=== PATIENT | male | born 1995 | race African-American/Black ===

== ENCOUNTER 2019-11-14 18:10 | Emergency (ER) | payer OTHER ==
[2019-11-14 18:14] VITALS: BP 111/53; PULSE 65; TEMP 98; BMI 20.9
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
[2019-11-14 19:10] LABS: PROTHROMBIN TIME (PATIENT) 48.1 SEC (9.7-13.0)
[2019-11-14 19:37] LABS: INR 4.02 (0.83-1.09)
== END 2019-11-14 19:55 | disposition home or self-care (01) ==
LOC: JERFT 18:10
DX: V03.10XA Pedestrian on foot injured in collision with car, pick-up truck or van in traffic accident, initial encounter (principal); S99.822A Other specified injuries of left foot, initial encounter; Y92.414 Local residential or business street as the place of occurrence of the external cause; Y93.01 Activity, walking, marching and hiking; Y99.8 Other external cause status; Z95.2 Presence of prosthetic heart valve; Z79.01 Long term (current) use of anticoagulants; Z88.1 Allergy status to other antibiotic agents
CPT/HCPCS: 36415; 73610-TC-LT-FY; 73630-TC-LT; 85610; 99281-25

== ENCOUNTER 2021-10-24 15:42 | Emergency (ER) | payer OTHER ==
[2021-10-24 15:56] VITALS: BP 120/68; PULSE 50; TEMP 97.9; BMI 27.8
[2021-10-24] MEDS ORDERED: ALBUTEROL SO4 HFA INHALER IH ONE ×2 (17:13→19:52)
[2021-10-24] MEDS ORDERED: DEXAMETHASONE LIQUID 0.5 MG/5 ML PO ONE (17:13)
[2021-10-24] MEDS ORDERED: DEXAMETHASONE SOD PHOSPHATE 10 MG/1 ML VIAL ONE (19:52)
== END 2021-10-24 22:25 | disposition home or self-care (01) ==
LOC: JER 15:42
DX: J45.909 Unspecified asthma, uncomplicated (principal)
CPT/HCPCS: 71046-TC-FY; 93005; 93010; 99284-25; C9803; U0003; U0005

== ENCOUNTER 2022-01-30 17:20 | Emergency (ER) | payer OTHER ==
[2022-01-30 17:37] VITALS: BP 123/76; PULSE 78; TEMP 97.8; BMI 27.9
[2022-01-30] MEDS ORDERED: AZITHROMYCIN 250 MG TABLET PO ONE (18:14)
[2022-01-30] MEDS ORDERED: FAMOTIDINE 20 MG TABLET PO ONE (18:14)
[2022-01-30] MEDS ORDERED: MAG HYDROX/AL HYDROX/SIMETH 30 ML UNIT-DOSE CUP PO ONE (18:14)
[2022-01-30] MEDS ORDERED: FAMOTIDINE 20 MG TABLET ONE (18:19)
[2022-01-30] MEDS ORDERED: MAG HYDROX/AL HYDROX/SIMETH 30 ML UNIT-DOSE CUP ONE (18:19)
[2022-01-30] MEDS ORDERED: AZITHROMYCIN 250 MG TABLET ONE (18:19)
[2022-01-31 13:07] LABS: SARS-CoV-2 NAA Not Detected (Not Detected)
== END 2022-01-30 18:40 | disposition home or self-care (01) ==
LOC: FER 17:20
DX: J06.9 Acute upper respiratory infection, unspecified (principal); J20.9 Acute bronchitis, unspecified; K21.9 Gastro-esophageal reflux disease without esophagitis
CPT/HCPCS: 71046-TC-FY; 87651; 87804; 99284-25; C9803; U0003; U0005

== ENCOUNTER 2022-03-18 20:26 | Emergency (ER) | payer OTHER ==
[2022-03-18 20:37] VITALS: BP 130/68; PULSE 87; TEMP 99.5; BMI 26.5
[2022-03-18] MEDS ORDERED: ACETAMINOPHEN 500 MG TABLET (FP) PO ONE (22:11)
[2022-03-18] MEDS ORDERED: ACETAMINOPHEN 500 MG TABLET (FP) ONE (22:12)
[2022-03-18] MEDS ORDERED: MAG HYDROX/ALH/SMC/DPHA/LIDO 240 ML MOUTHWASH MM ONE (22:30)
[2022-03-18] MEDS ORDERED: ONDANSETRON *ODT* 4 MG TABLET ONE (23:25)
[2022-03-18] MEDS ORDERED: ONDANSETRON *ODT* 4 MG TABLET SL ONE (23:25)
[2022-03-19] MEDS ORDERED: MAG HYDROX/ALH/SMC/DPHA/LIDO 240 ML MOUTHWASH MM ONE (21:53)
[2022-03-20 12:07] LABS: SARS-CoV-2 NAA Not Detected (Not Detected)
== END 2022-03-18 23:20 | disposition home or self-care (01) ==
LOC: JER 20:26 → JERFT 20:26
DX: J02.9 Acute pharyngitis, unspecified (principal); R11.0 Nausea; K13.79 Other lesions of oral mucosa
CPT/HCPCS: 87651; 87804; 99283-25; C9803-CS; Q0162; U0003; U0005

== ENCOUNTER 2023-10-30 16:58 | Emergency (ER) | payer OTHER ==
[2023-10-30 17:14] VITALS: BP 132/74; PULSE 64; RESP 20; TEMP 98.3; BMI 29.0
[2023-10-30] MEDS ORDERED: ACETAMINOPHEN 500 MG TABLET (FP) PO ONE (17:21)
[2023-10-30] MEDS ORDERED: IBUPROFEN 400 MG TABLET (FP) PO ONE ×2 (17:22→17:31)
[2023-10-30] MEDS ORDERED: MAG HYDROX/AL HYDROX/SIMETH -MYLANTA- ORAL SUSPENSION PO ONE (17:25)
[2023-10-30] MEDS ORDERED: FAMOTIDINE 20 MG TABLET PO ONE (17:26)
[2023-10-30] MEDS ORDERED: ACETAMINOPHEN 325 MG TABLET (FP) ONE (17:31)
[2023-10-30] MEDS ORDERED: FAMOTIDINE 20 MG TABLET ONE (17:31)
[2023-10-30] MEDS ORDERED: MAG HYDROX/AL HYDROX/SIMETH 30 ML UNIT-DOSE CUP ONE (17:32)
== END 2023-10-30 18:43 | disposition home or self-care (01) ==
LOC: FER 16:58
DX: R07.89 Other chest pain (principal); R10.13 Epigastric pain; R05.9 Cough, unspecified; R09.81 Nasal congestion; B34.9 Viral infection, unspecified; Z20.822 Contact with and (suspected) exposure to COVID-19
CPT/HCPCS: 0241U-QW; 71046-TC-FY; 93005; 99285-25